=== PATIENT | female | born 1960 | race Caucasian/White ===

== ENCOUNTER → 2024-01-21 14:50 | Outpatient (REF) | payer BC, SELFPAY | LOC: HWRCS 14:50 | PROVIDERS: ATTENDING PHYSICIAN Internal Medicine | DX: R01.1 Cardiac murmur, unspecified (principal) | CPT/HCPCS: 93306 ==

== ENCOUNTER → 2024-02-08 06:23 | Day surgery (SDC) | payer BC, SELFPAY | LOC: GI 06:23 | PROVIDERS: ATTENDING PHYSICIAN Internal Medicine Gastroenterology | DX: R13.10 Dysphagia, unspecified (principal); R12 Heartburn; K44.9 Diaphragmatic hernia without obstruction or gangrene; K31.89 Other diseases of stomach and duodenum; K29.50 Unspecified chronic gastritis without bleeding | CPT/HCPCS: 43239; 88305; 88342 ==

== ENCOUNTER → 2025-07-09 12:24 | Outpatient (REF) | payer BC, SELFPAY | LOC: HWRAD 12:24 | PROVIDERS: ATTENDING PHYSICIAN Internal Medicine Rheumatology; FAMILY PHYSICIAN Internal Medicine | DX: M25.60 Stiffness of unspecified joint, not elsewhere classified (principal); Z13.89 Encounter for screening for other disorder; R76.89 Other specified abnormal immunological findings in serum; M35.3 Polymyalgia rheumatica; L80 Vitiligo | CPT/HCPCS: 72110; 73030; 73110; 73130; 73564 ==

== ENCOUNTER → 2025-07-10 09:21 | Outpatient (REF) | payer BC, SELFPAY ==
[2025-07-10 11:49] LABS: Hematocrit 42.9 % (37.0-47.0); Hemoglobin 14.4 g/dL (12.0-16.0); Mean Corp Hgb Conc. 33.6 g/dL (33.0-37.0); Mean Corpuscular Volume 85.6 fL (81.0-99.0); Nucleated Red Blood Cells % 0 %; Platelet Count 250 10^3/uL (130-400); Red Cell Dist. Width 13.2 % (11.5-14.5)
[2025-07-10 12:22] LABS: C-Reactive Protein < 5.00 mg/L (0.0-10.00)
[2025-07-10 12:39] LABS: ALT (SGPT) 65 U/L (0-35); AST (SGOT) 59 U/L (14-36); Albumin 4.8 g/dl (3.5-5.0); Alkaline Phosphatase 58 U/L (38-126); Blood Urea Nitrogen 21 mg/dl (7-17); Calcium 9.5 mg/dl (8.4-10.2); Carbon Dioxide 29 mmol/L (22-30); Chloride 101 mmol/L (98-107); Glucose 78 mg/dl (70-99); Potassium 4.8 mmol/L (3.5-5.1); Sodium 135 mmol/L (135-145); Total Protein 7.6 g/dl (6.3-8.2); Uric Acid 4.9 mg/dl (2.5-6.2); eGFR > 60.00
[2025-07-10 15:06] LABS: Hepatitis B Surface Antigen Negative (Negative)
[2025-07-10 15:24] LABS: Hepatitis C Antibody Negative (Negative)
[2025-07-12 21:15] LABS: HLA-B27 Negative (Negative)
[2025-07-13 02:15] LABS: SSA 52 (Ro)(ENA) Ab, IgG 2 AU/mL (0-40); SSA 60 (Ro)(ENA) Ab, IgG 0 AU/mL (0-40); SSB (La)(ENA) Ab, IgG 0 AU/mL (0-40)
[2025-07-13 09:34] LABS: ds-DNA Ab, IgG Reflex To Titer 12 IU (0-24)
== END ==
LOC: HWLAB 09:21
PROVIDERS: FAMILY PHYSICIAN Internal Medicine
DX: M25.60 Stiffness of unspecified joint, not elsewhere classified (principal); R76.89 Other specified abnormal immunological findings in serum; M35.3 Polymyalgia rheumatica; L80 Vitiligo
CPT/HCPCS: 36415; 80053; 82085; 82550; 82955; 84550; 85025; 85652; 86140; 86160; 86225; 86235; 86480; 86704; 86706; 86803; 86812; 87340